=== PATIENT | female | born 1995 | race Caucasian/White ===

== ENCOUNTER 2017-02-11 12:11 | Emergency (ER) | payer BC ==
[~2017-02-11] VITALS: Ht 162.6 cm; Wt 57.0 kg
[2017-02-11 12:58] VITALS: BP 138/88
== END 2017-02-11 17:06 | disposition left against medical advice (07) ==
LOC: ER 15:03
DX: R10.9 Unspecified abdominal pain (principal); Z53.21 Procedure and treatment not carried out due to patient leaving prior to being seen by health care provider